=== PATIENT | male | born 1955 | race Caucasian/White ===

== ENCOUNTER 2024-06-17 13:22 | Emergency (ER) | payer MEDICARE, BC ==
[2024-06-17 13:35] VITALS: BP 140/74; PULSE 57
== END 2024-06-17 14:49 | disposition home or self-care (01) ==
LOC: JP.ED 13:22
DX: T81.321A Disruption or dehiscence of closure of internal operation (surgical) wound of abdominal wall muscle or fascia, initial encounter (principal); Y83.8 Other surgical procedures as the cause of abnormal reaction of the patient, or of later complication, without mention of misadventure at the time of the procedure; Z88.0 Allergy status to penicillin; Z79.899 Other long term (current) drug therapy
CPT/HCPCS: 99282; 99283